=== PATIENT | female | born 1970 | race Caucasian/White ===

== ENCOUNTER → 2025-08-24 | Day surgery (SDC) | payer BC ==
[~2025-08-24] MED LIST: AMITRIPTYLINE100 MG PO; CALCIUM ACETAT667 MG PO; D3-5000125 MCG; ESGIC CAPSULE1 EACH PO; FENTANYL CITRATE/PF 100MCG/2 ML INJ ONE; FISH OIL 1,0001 EAC7; FLONASE; HYDROCODON-ACE1 EA12 PO; LACTATED RINGER'S 1,000 ML ONE; LIDOCAINE HCL 2% LOCAL INJ 5 ML SDV VIAL INJ ONE; MAG GLYCINATE100 MG; MIDAZOLAM HCL 2 MG/2 ML VIAL ONE; ONDANSETRON HCL INJ 2MG/ML 2ML 2 MG/ML VIAL ONE; PROGESTERONE100 MG PO; PROPOFOL IV EMULSION 10 MG/ML 20 ML VIAL ONE; QULIPTA60 MG PO; SEVOFLURANE INHAL SOLN 250 ML PEN BTL ONE; SINGULAIR10 MG PO; VALIUM2 MG PO; VENTOLIN HFA18 GM INH; VITAMIN A3000 MCG; VITAMIN B650 M1; ZYRTEC-D TABLE1 EACH PO; ZYRTEC10 M3
[2025-08-24 08:55] VITALS: BP 130/84; PULSE 80; RESP 14; O2SAT 98
== END | disposition home or self-care (01) ==
LOC: OR 05:32
PROVIDERS: ATTEND Otolaryngology Otolaryngology/Facial Plastic Surgery
DX: H65.492 Other chronic nonsuppurative otitis media, left ear (principal); H74.42 Polyp of left middle ear; H90.3 Sensorineural hearing loss, bilateral; J45.909 Unspecified asthma, uncomplicated; G43.909 Migraine, unspecified, not intractable, without status migrainosus; M54.2 Cervicalgia; M54.9 Dorsalgia, unspecified; M27.9 Disease of jaws, unspecified; F41.9 Anxiety disorder, unspecified; F17.210 Nicotine dependence, cigarettes, uncomplicated; F17.290 Nicotine dependence, other tobacco product, uncomplicated; Z88.0 Allergy status to penicillin; Z79.51 Long term (current) use of inhaled steroids; Z79.899 Other long term (current) drug therapy
CPT/HCPCS: 69436; 93005; C1878; J2003; J2250; J2405; J2704; J3010; J7121